=== PATIENT | male | born 1970 | race Caucasian/White ===

== ENCOUNTER 2021-10-18 18:19 | Inpatient (IN) | payer OTHER, SELFPAY ==
[2021-10-18] VITALS (13 sets, daily range): BP systolic 108–176; BP diastolic 71–103; PULSE 67–102; RESP 15–23; TEMP 36.1–37; O2SAT 95–100; BMI 34.4; BMI 31.2; BMI 31.3
--- NOTE | 2021-10-18 18:40 | EKG12_ITS ---
Test Reason : CP Blood Pressure : / mmHG Vent. Rate : 086 BPM Atrial Rate : 086 BPM P-R Int : 134 ms QRS Dur : 088 ms QT Int : 356 ms P-R-T Axes : 075 -12 019 degrees QTc Int : 426 ms Normal sinus rhythm Inferior infarct , age undetermined Abnormal ECG Confirmed by FRANKLIN LOYOLA, GUZMAN ([id number]), medical editor MELVIN KARIMI ([id number]) on 10/21/2021 10:44:40 A M Referred By: Jamie Mcknight Confirmed By:BRYANNA MCKNIGHT MD
[2021-10-18] MEDS: Aspirin 81 MG TAB.CHEW 324 MG PO (18:44)
--- NOTE | 2021-10-18 18:46 | EDS_ITS ---
HPI History of Present Illness Chief Complaint: Chest Pain Informant: patient Onset/Context/Timing Onset: Days (3) Activity at onset: gradual and onset Timing: Intermittent and Lasts (minutes-hrs) Quality: Positive for Burning and Heaviness Location: Substernal (Radiating down left arm and sometimes more in both shoulders and throat) Current Severity: Moderate Maximum Severity: Severe Worsened By: Exertion (Even light); Not Worsened By Breathing Relieved By: Rest Associated Symptoms: Positive for Diaphoresis and Dyspnea; Negative for Nausea, Vomiting, Cough, Fever, Lightheadedness and Palpitations Narrative Narrative: Patient states he is having pain similar to when he had been diagnosed with a heart attack 12 or so years ago. He states he was seen here and sent to a hospital in [place] where he had a heart cath, he did not have a stent. He states since he was discharged from there, he has not seen a doctor, not changed his smoking or his bad eating habits, and started having this discomfort even with light activity the day before yesterday. It was going down his left arm yesterday when he was having nonpleuritic chest heaviness/burning, today it is in both shoulders and feels like he has a knot in his throat. [facility] Medical History Past heart attack Allergy/AdvReac Type Severity Reaction Status Date / Time No Known Allergies Allergy Verified 10/18/21 18:21 Social History Smoking Status: Current every day smoker tobacco type: cigarettes ROS ROS ED Constitutional Constitutional ED: Reports malaise; Denies chills or fever(s) Eyes Eyes: Denies change in vision or diplopia ENT ENT ED: Denies rhinorrhea or sore throat Cardiovascular Cardiovascular: Reports as per HPI, chest pain, diaphoresis and dyspnea; Denies orthopnea, palpitations or pedal edema Respiratory/Chest Respiratory/Chest: Reports dyspnea; Denies cough or orthopnea Gastrointestinal Gastrointestinal: Denies abdominal pain, diarrhea, nausea or vomiting Genitourinary Genitourinary ED: Denies dysuria or hematuria Musculoskeletal Musculoskeletal: Reports as per HPI and extremity pain; Denies back pain or neck pain Integumentary Denies abscess or rash Neurologic Neurologic: Denies headache(s), paresthesias or weakness Psychiatric Psychiatric: Denies anxiety or suicidal thoughts EXAM Physical Exam Const Vital Signs: 10/18/21 18:19 10/18/21 18:35 Temperature 97 F L Temperature Source Temporal Pulse Rate 102 H 91 Respiratory Rate 18 16 Respiratory Effort Short of Breath Blood Pressure 145/95 H 176/99 H Blood Pressure Mean 111 124 Pulse Ox 97 97 Oxygen Delivery Method Room Air Room Air Positive well nourished and well developed General Appearance ED: well developed and NAD HEENT Reports moist mucous membranes normocephalic and atraumatic Eyes PERRL and EOMs intact bilaterally Neck full ROM, supple and no JVD Resp normal respiratory effort and clear to auscultation bilaterally Cardio regular rate, regular rhythm and no murmurs GI non-tender and non-distended Auscultation: normoactive bowel sounds Palpation: soft Back/Spine no CVA tenderness General Back: other FROM Extremity normal to inspection General Extremety ED: Negative for edema, pulses abnormal or tenderness General Extremity: Negative for edema or pulses abnormal Neuro oriented x3, CN's II-XII intact bilaterally and no sensory deficits noted Sensorium / Orientation: awake and alert Motor Exam: strength 5/5 throughout Skin no rashes or lesions noted and no wounds Heart Score History: Highly Suspicious ECG: Significant ST-Depression Age: >45 - <65 years Risk Factors: >/= 3 Risk Factors or History of CAD Score: 7 MDM MDM MDM Narrative Medical decision making narrative: EKG was handed to me from the patient obtaining it while in triage. It looks like an inferior STEMI, so I saw the patient out in the room that they took him to immediately, and in discussing with him it does sound like he is having a STEMI but it started 2 or 3 days ago and he was having intermittent symptoms. I discussed with the STEMI financial services internship very quickly, he agreed with calling STEMI which we did, with Brilinta, heparin, prophylactic Zofran, and aspirin being given in the emergency department. Radiography Chest X-Ray - ED: 1 View, Read by ED Physician and No Acute Disease Rhythm Strip Rhythm Strip: Sinus Rhythm Rate: 85 Ectopy: None EKG Initial EKG: Attestation: I personally reviewed and interpreted this EKG as follows: Interpretation: Sinus Rhythm, S-T Elevation (Inferior 1-2 mm) and S-T Depression (aVL less than 1 mm) Prior EKG tracings: available for review (2010) Prior: Changed Critical Care Time Critical Care Time: Yes Critical care time (excluding procedures): 30-74 minutes (35 min), Including time spent:, Discussing w/Patient &/or Family/Change Person, Discussing w/Consultants, Arranging Admission or Transfer and Performing Direct Patient Care at Bedside Discharge Plan Dx/Rx/DC Orders Clinical Impression: Acute ST elevation myocardial infarction (STEMI) of inferior wall Disposition Disposition: Acute Care Hospital [facility]
--- NOTE | 2021-10-18 18:50 | RAD_ITS ---
STUDY: AP PORTABLE UPRIGHT CHEST X-RAY OF 1858 HOURS ON 10/18/2021 REASON FOR EXAM: 51-year-old male with chest pain. TECHNIQUE: A single view AP portable upright chest x-ray was performed per protocol. COMPARISON: None. FINDINGS: Normal osseous structures. No cardiomegaly. No pulmonary infiltrates, atelectasis, effusion, or pulmonary mass lesions. No pneumonia, pneumonitis or bronchitis. No free subdiaphragmatic air. No splenic flexure syndrome. RAD/Chest 1 View (Portable) IMPRESSION: No active cardiopulmonary disease. Electronically Signed: Tanner Sims MD at 19:14 EDT ,
[2021-10-18] MEDS: Ondansetron 4 MG/2 ML Vial IV (18:53)
[2021-10-18] MEDS: TICAGRELOR 90 MG TABLET 180 MG PO (18:53)
--- NOTE | 2021-10-18 18:57 | HP.PCM.HOS_ITS ---
HPI - General General Date of Admission: 10/18/21 Date of Service: 10/18/21 Chief Complaint: Chest pain, dyspnea. HPI Narrative The patient is a 51 y/o M w/ PMHx: HTN, HLD, CAD with prior OR w/ transfer at that time for consideration PCI; however, from discussions this was deferred in preference for medical management, Heavy Tobacco use, Obesity who presents to the [facility] ED on 10/18/21 with history of nearly 1 year of intermittent chest d iscomfort primarily midsternal with occasional associated shortness of breath and radiation of discomfort to the left shoulder sometimes lasting several minutes to less than 1 hour however they become more frequent and more severe with on Sunday pain rated 10 out of 10, burning, pressure-like with significant dyspnea which eventually resolved however patient had recurrent episode on day of ED presentation prompting ED evaluation. He noted this current presentation pain was rated 5 out of 10 in severity with similar presentation midsternal, pressure and burning with radiation to the left shoulder with associated severe dyspnea, less severe and has resolved prior to ED presentation. Of note patient has not been any hypertensive regimen, hyperlipidemic regimen or aspirin therapy despite the fact it was recommended and he has had prior evidence of coronary disease with OR potentially up to 10 years per his report. Work-up in the ED included T 97, heart rate initially 102, BP 145/95, respiratory rate 18, 97% on room air, CBC with WBC 9.4, hemoglobin 14.9, platelet 234 without marked shift, pending coags, pending BMP, pending troponin, pending chest x-ray, EKG with evidence of inferior STEMI. STEMI call placed and patient was administered aspirin full-strength therapy, heparin bolus as well as Brilinta load per cardiology direction. [facility] Medical History CAD (coronary artery disease) History of OR (myocardial infarction) HLD (hyperlipidemia) HTN (hypertension) Obesity Tobacco use Allergy/AdvReac Type Severity Reaction Status Date / Time No Known Allergies Allergy Verified 10/18/21 18:21 Family History (Updated 10/18/21 @ 19:[address] Anahi Hernandez MD) Mother Heart disease Myocardial infarction Father Heart disease Surgical History (Updated 10/18/21 @ 19:[address] Anahi Hernandez MD) No history of previous surgery Social History (Updated 10/18/21 @ 19:[address] Anahi Hernandez MD) household members: none Smoking Status: Current every day smoker tobacco type: cigarettes Smoking packs per day: 3.5 Smoking cigarettes per day: 70.0 Years smoked: 39 Smoking pack- years: 136.50 alcohol intake: never substance use type: marijuana and other details: Uses medical cannabis, smokes frequently. ROS ROS Narrative Admission Review of Systems: CONSTITUTIONAL: No weight loss, fever, chills, + weakness or fatigue. HEENT: Eyes: No visual loss, blurred vision, double vision or yellow sclerae. Ears, Nose, Throat: No hearing loss, sneezing, congestion, runny nose or sore throat. SKIN: No rash or itching, lesions, wounds. CARDIOVASCULAR: + Chest pain/burning/pressure, No palpitations, edema, orthopnea, syncopal events. RESPIRATORY: + Shortness of breath, occasional cough, occasional wheezing, No marked sputum, hemoptysis. GASTROINTESTINAL: No anorexia, nausea, vomiting or diarrhea, abdominal pain, melena, BRBPR. GENITOURINARY: No dysuria, frequency, urgency or retention. NEUROLOGICAL: No headache, dizziness, syncope, paralysis, ataxia, numbness or tingling in the extremities, focal weakness, change in bowel or bladder control, seizure. MUSCULOSKELETAL: + muscle, back pain, joint pain or stiffness. HEMATOLOGIC: No anemia, bleeding or bruising. LYMPHATICS: No enlarged nodes. No history of splenectomy. PSYCHIATRIC: No history of depression or anxiety. ENDOCRINOLOGIC: + reports of sweating. No cold or heat intolerance. No polyuria or polydipsia. ALLERGIES: No history of asthma, hives, eczema or rhinitis. Vital Signs Vital Signs Vital Signs: 10/18/21 18:19 10/18/21 18:35 10/18/21 18:47 Temperature 97 F L Temperature Source Temporal Pulse Rate 102 H 91 Respiratory Rate 18 16 19 H Respiratory Effort Short of Breath Blood Pressure 145/95 H 176/99 H 148/103 H Blood Pressure Mean 111 124 Pulse Ox 97 97 Oxygen Delivery Method Room Air Room Air Weight Weight: 220 lb Body Mass Index (BMI) 34.4 Physical Exam Narrative Physical Examination: General: Awake, alert, oriented x 3 and cooperative, seated upright in the ED be d, notes chest discomfort has now resolved. Skin: Normal color, normal turgor, no icterus, no cyanosis. HEENT: AT/NC, EOMI, PERRLA, mildly dry MM, no carotid bruits or JVD noted. Lungs: Diminished, greater bases, moderate effort, no rales, ronchi or wheezing. Heart: Mildly tachycardic with regular rhythm; no gallop, rub audible. Abdomen: Soft, obese, NTTP, ND, normal BS, no HSM. Extremities: No cyanosis, clubbing, or edema. Neurological: Patient awake, alert, oriented as noted, cognitive function intact; pupils equally reactive to light and accommodation, cranial nerves II- XII grossly normal, moving all 4 extremities, no focal deficits, strength mildly to moderately global decrease given acute presentation, improving Psychiatric: Affect appears fatigued, no acute evidence of depressive or anxiety feelings. Results Lab / Micro Data Result Diagrams: 10/18/21 18:40 10/18/21 18:40 Rhythm Strip Rhythm Strip: Sinus Rhythm Rate: 85 Ectopy: None Assessment & Plan Assessment/Plan (1) Acute ST elevation myocardial infarction (STEMI) of inferior wall: PLAN: The patient is a 51 y/o M w/ PMHx: HTN, HLD, CAD with prior OR w/ transfer at that time for consideration PCI; however, from discussions this was deferred in preference for medical management, Heavy Tobacco use, Obesity who presents to the [facility] ED on 10/18/21 with history of nearly 1 year of intermittent chest discomfort primarily midsternal with occasional associated shortness of breath and radiation of discomfort to the left shoulder sometimes lasting several minutes to less than 1 hour with more frequent events and more severe nature prompting ED evaluation. #1. Chest Pain w/ Acute STEMI: EKG in ED w/ evidence of inferior STEMI, CXR pending upon evaluation as well as troponin, CBC not marked appearing, BMP p ending additionally. Patient administered full-strength aspirin, Brilinta load and heparin bolus. Patient will be transition to the cardiac catheterization lab once lab is ready and following this to the ICU expectantly, will maintain on a monitored bed, continue serial cardiac enzymes and EKGs. Obtain magnesium level upon admission. Continue medical management w/ asa, add high-dose statin w/ AM FLP. Will defer choice of beta-srinivas and BILLIE inhibitor versus ARB to cardiology. Echocardiogram requested. Cardiology consultation continued. As needed morphine. NG deferred given inferior STEMI presentation. #2. Hypertension: We will defer beta-srinivas type as well as BILLIE inhibitor versus ARB to cardiology, PRN hydralazine in the interim. #3. Hyperlipidemia: We will start high-dose statin, FLP in a.m. #4. Heavy Tobacco Abuse: Encouraged cessation, inpatient consultation per RT, N R if desired. Given significant history patient would benefit from further outpatient evaluation as he notes suspicion for possible COPD. #5. Obesity: Weight loss and lifestyle changes encouraged. #6. DVT prophylaxis: SCDs, will initiate Lovenox therapy once heparin transitioned off. Charges/Coding Visit Charges Inpatient E&M: 45817 Init Hosp L3
[2021-10-18] MEDS: 0.9% Normal Saline 1,000 ML 999 ML IV (19:00)
[2021-10-18] MEDS: Heparin Injection (Vial) 5,000 UNIT/ML VIAL 4000 UNIT IV (19:00)
[2021-10-18 19:03] LABS: Absolute Lymphocyte Count 2.38 X10^3/uL (0.83-4.51); Absolute Neutrophil Count 5.9 X10^3/uL (2.0-7.7); Basophil# 0.03 X10^3/uL; Basophil% 0.3 % (0-1); Eosinophil# 0.21 X10^3/uL; Eosinophils% 2.2 % (0-5); Hematocrit 43.4 % (40-54); Hemoglobin 14.9 g/dL (13.0-16.5); Lymphocyte # 2.38 X10^3/ul (0.83-4.51); Lymphocyte % 25.5 % (19-41); Mean Corp Hgb Conc 34.3 g/dL (32-36); Mean Corpuscular Hgb 30.3 pg (27.0-32.0); Mean Corpuscular Volume 88.4 fL (80-94); Mean Platelet Vol. 9.1 fl (6.2-12.0); Monocyte# 0.73 X10^3/uL; Monocyte% 7.8 % (0-10); NRBC Flagged by Analyzer 0 % (0-5); Neutrophil # 5.94 X10^3/uL (2.7-7.7); Neutrophil % 63.6 % (47-70); Platelet Count 234 K/mm3 (150-450); RBC Distribution Width CV 12.7 % (11.6-14.6); RBC Distribution Width SD 41.1 fl (35.1-43.9); Red Blood Count 4.91 M/mm3 (4.6-6.2); White Blood Count 9.4 K/mm3 (4.4-11.0)
[2021-10-18] MEDS: HEPARIN/D5w 25,000 UNITS 25,000 UNITS/250 ML IV.SOLN. 12 UNITS CONT INF (19:12)
[2021-10-18 19:14] LABS: International Normalized Ratio 1.1; Partial Thromboplast Time 28.8 Seconds (24.1-36.2); Prothrombin Time (Protime)PT. 13.6 SECONDS (11.7-14.9)
--- NOTE | 2021-10-18 19:25 | CM.ED ---
Social Work Note SW provided emotional support to pt's family. Ashley Cordova MANAGER ANIMATION, TUBING MACHINE TENDER
[2021-10-18 20:16] LABS: Anion Gap 8 (5-15); BUN 15 mg/dL (7-18); BUN/Creat Ratio 16.5 RATIO (10-20); Calcium,Total 9.2 mg/dL (8.5-10.1); Chloride 104 mmol/L (98-107); Creatinine, Serum 0.91 mg/dL (0.70-1.30); EST Glomerular Filtration Rate 93 mL/min (>60); Est Glom Filt Rate - Afr Amer 113 mL/min (>60); Estimated Creatinine Clearance 89.79 ml/min; Glucose 191 mg/dL (74-106); Potassium 3.5 mmol/L (3.5-5.1); Sodium Level 136 mmol/L (136-145); Troponin-I HS 1843 pg/mL (3.0-78.0)
--- NOTE | 2021-10-18 20:34 | CON.PCM.CA_ITS ---
Assessment & Plan Assessment/Plan (1) Acute ST elevation myocardial infarction (STEMI) of inferior wall: PLAN: This appears to be late presentation of acute NE with symptoms starting greater than 24 hours prior to presentation. Patient had a 95 to 99% stenosis in the mid RCA that was treated with bare-metal stents. We will keep him on aspirin, Brilinta, beta-srinivas, statin. We will check a 2D echo tomorrow. Patient will be admitted to the CCU for further management of his ST elevation NE. HPI Consult Data Date of Consult: 10/18/21 HPI Narrative HPI Narrative: SOLANGE MOURA, is a 51 M who presents with chest pain and left shoulder pain that started 2 days back. It became more intense today and patient came to the emergency room. In the emergency room EKG was suggestive of late presentation of acute inferior NE. Since patient was still having symptoms a STEMI alert was called. Patient was brought emergently to the cardiac [facility] [facility] and underwent coronary angiography which revealed 95-99% stenosis in the mid RCA that was treated with bare-metal stents. Patient appears to have had issues with compliance with medical therapy, follow-up, smoking cessation etc. Review of systems: All systems reviewed. All systems negative except that in HPI PFSH Medical History CAD (coronary artery disease) History of NE (myocardial infarction) HLD (hyperlipidemia) HTN (hypertension) Obesity Tobacco use Allergy/AdvReac Type Severity Reaction Status Date / Time No Known Allergies Allergy Verified 10/18/21 18:21 Family History (Updated 10/18/21 @ 19:[address] Anahi Hernandez MD) Mother Heart disease Myocardial infarction Father Heart disease Surgical History (Updated 10/18/21 @ 19:[address] Anahi Hernandez MD) No history of previous surgery Social History (Updated 10/18/21 @ 19:[address] Anahi Hernandez MD) household members: none Smoking Status: Current every day smoker tobacco type: cigarettes Smoking packs per day: 3.5 Smoking cigarettes per day: 70.0 Years smoked: 39 Smoking pack- years: 136.50 alcohol intake: never substance use type: marijuana and other details: Uses medical cannabis, smokes frequently. Physical Exam Const alert and oriented x3 Orientation / Consciousness: awake HEENT normocephalic Eyes no scleral icterus Resp normal respiratory effort Cardio regular rate and regular rhythm Skin no rashes or lesions noted Neuro oriented x3 Psych mental status grossly normal Risk Stratification Risk Stratification Applicable: No Charges/Coding Visit Charges Inpatient E&M: 82503 Init Hosp L2 Objective Data Vital Signs: Vital Signs Temp Pulse Resp BP Pulse Ox 98.6 F 102 H 16 139/90 H 96 10/18/21 19:24 10/18/21 19:24 10/18/21 19:24 10/18/21 19:24 10/18/21 19:24 Oxygen Flow Rate (L/min) 4 Oxygen Delivery Method Room Air Weight: 199 lb 8.293 oz Body Mass Index (BMI) 31.2 Lab / Micro Data Result Diagrams: 10/18/21 18:40 10/18/21 18:40 Labs: Laboratory Results - last 24 hr 10/18/21 18:40: WBC 9.4, RBC 4.91, Hgb 14.9, Hct 43.4, MCV 88.4, MCH 30.3, MCHC 34.3, RDW Std Deviation 41.1, RDW Coeff of Jeromy 12.7, Plt Count 234, MPV 9.1, Immature Gran % (Auto) 0.600, Neut % (Auto) 63.6, Lymph % (Auto) 25.5, Denali % (Auto) 7.8, Eos % (Auto) 2.2, Baso % (Auto) 0.3, Absolute Neuts (auto) 5.9, Absolute Lymphs (auto) 2.38, Nucleated RBC % 0 10/18/21 18:40: PT 13.6, INR 1.1, APTT 28.8 10/18/21 18:40: Sodium 136, Potassium 3.5, Chloride 104, Carbon Dioxide 24.0, A nion Gap 8, BUN 15, Creatinine 0.91, Estim Creat Clear Calc 89.79, Est GFR (MDRD) Af Amer 113, Est GFR (MDRD) Non-Af 93, BUN/Creatinine Ratio 16.5, Glucose 191 H, Calcium 9.2, Troponin I High Sens 1843 H* 10/18/21 18:40: Magnesium 2.0 Rhythm Strip Rhythm Strip: Sinus Rhythm Rate: 85 Ectopy: None Cardiology Labs/Tests 10/18/21 18:40: WBC 9.4, RBC 4.91, Hgb 14.9, Hct 43.4, MCV 88.4, MCH 30.3, MCHC 34.3, Plt Count 234, MPV 9.1, Immature Gran % (Auto) 0.600, Neut % (Auto) 63.6, Lymph % (Auto) 25.5, Denali % (Auto) 7.8, Eos % (Auto) 2.2, Baso % (Auto) 0.3, A bsolute Neuts (auto) 5.9, Nucleated RBC % 0 10/18/21 18:40: PT 13.6, INR 1.1, APTT 28.8 10/18/21 18:40: Sodium 136, Potassium 3.5, Chloride 104, Carbon Dioxide 24.0, Anion Gap 8, BUN 15, Creatinine 0.91, Est GFR (MDRD) Af Amer 113, Est GFR (MDRD) Non-Af 93, BUN/Creatinine Ratio 16.5, Glucose 191 H, Calcium 9.2 10/18/21 18:40: Magnesium 2.0 Rhythm: EKG: ECHO: Stress Test: Cardiac Cath: PCI: CT Surgery: Holter monitor: EPS: PPM: CXR: Chest CT Scan: Radiography Diagnostic Testing: Radiology Impression Chest X-Ray 10/18/21 18:50 IMPRESSION: No active cardiopulmonary disease. Electronically Signed: Tanner Sims MD at 19:14 EDT ,
--- NOTE | 2021-10-18 20:55 | CL.I_ITS ---
Patient Name: SOLANGE MOURA Study Date: 10/18/2021 Performing: Ruben Mcknight MD Ht: 66.92 inches 170 cm : 1970 Wt: 200.62 lbs 91 kg Age: 51 Gender: male BSA: 2.02 PROCEDURE(S) PERFORMED DC02-(85195)C/COR IC07-([id number])AMI, BMS AND/OR PTCA ARTERY OR GRAFT SINGLE VESSEL CLINICAL PROFILE AND CO-MORBIDITIES Indications: ACS > 24 hrs Heart Failure: None Stress/Imaging Stress/Image Study Performed: No CAD Presentations: STEMI. Symptom onset Date/Time: 10/16/21 Time Not Available CONCLUSIONS CAD as described. No significant . Successful PCI of mRCA with bare metal stents RECOMMENDATIONS DESCRIPTION OF PROCEDURE The patient arrived to the procedure lab. The risks and benefits of the procedure as well as a full d escription of our services here and lack of surgical backup were fully explained to the patient and/o r their significant other prior to the catheterization. The Timeout was completed, verifying the rome ect patient and procedure. The patient's procedural site was prepped and draped in the usual fashion. Local anesthetic was given subcutaneously to right radial region with Lidocaine 2%. Using a modified Seldinger technique, arterial access was obtained via the right radial artery, a 6Fr sheath was inse rted.. Right Coronary Artery selective angiography was then performed in multiple views using a 5 Fr . JR 4 catheter. Left Coronary Artery selective angiography was performed in multiple views using a 5 Fr. JL3.5 catheter. LV to AO pullback pressures were then recordedThe images were reviewed and optio ns discussed. A decision was then made to proceed with an Intervention, IVUS or other adjunct procedure. JR4 Guide catheter was inserted and engaged into the RCA. [employer] Olanta Guide wire was advanced t o the RCA. Emerge 3.0 x 12 Balloon catheter was inserted. Balloon catheter was advanced across lesion in the right coronary, mid. PTCA balloon inflated at 6 atms for 10 secs. Angiogram performed post ba lloon dilatation. Rebel 3.50 x 16 Bare Metal stent was inserted Bare Metal stent was advanced across the lesion in the right coronary, mid. Angiogram performed pre stent deployment. Angiogram performed post stent deployment. NC Emerge 4.0 x 8 Balloon catheter was inserted. Balloon catheter was advanced across lesion in the right coronary, mid. Angiogram performed post balloon dilatation. Rebel 3.5 x 8 Bare Metal stent was inserted Bare Metal stent was advanced across the lesion in the right coronary, mid. Angiogram performed post stent deployment. The arterial sheath was pulled and a TR Band was a pplied for hemostasis CORONARY ANGIOGRAPHY DOMINANCE: Right Dominant LEFT HEART ASSESSMENT Left Ventricular Ejection Fraction: Not assessed LEFT MAIN: Mild luminal irregularities LEFT ANTERIOR DESCENDING ARTERY: Mild luminal irregularities CIRCUMFLEX ARTERY: Mild luminal irregularities RIGHT CORONARY ARTERY: MID RCA: 95-99 % Stenosis VALVE FINDINGS: No Aortic Valve Stenosis INTERVENTION INFORMATION LESION SITE: RCA (Mid) Lesion Complexity: High/C, chronic total occlusion: No, lesion at bifurcation: Yes, thrombus present: Yes, lesion length: 20 mm, culprit lesion: Yes, Previously treated lesion: No Pre Stenosis: 95-99 % Pre intervention VICTORIA flow: 2 PROCEDURE: Bare Metal Stent with pre and post dilatation. Post Stenosis: 0 % Post intervention VICTORIA flow: 3 Lesion Devices: Cardinal 6 Fr JR4 100cm Guide Catheter Churchill .014 [employer] Olanta Straight 190cm [place] [facility] EMERGE MR 3.00x12 BALLOON [place] [facility] Rebel MR BMS 3.50x16 [place] [employer] NC EMERGE MR 4.00x08 BALLOON [place] [employer] Rebel MR BMS 3.50x08 COMPLICATIONS No Complications PROCEDURE MEDICATIONS Fentanyl 50 mcg IV Oxygen: 2 L/min via nasal cannula Heparin given IA 10/18/2021 19:47:32 Heparin 25,000u / 250ml D5W @ 12 u/hr discontinued 10/18/2021 19:56:18 Nitro 100 mcg IC 10/18/2021 20:13:26 Verapamil 2.5mg, Ntg 100mcgs, 3000 units of Heparin given IA 10/18/2021 19:47:32 IV Bolus: .9 NaCl 700ml total 10/18/2021 20:00:11 SUMMARY OF HEMODYNAMIC DATA Time AIR REST ECG 19:25:41 AO 134/91 (111) SA 19:44:54 LV 136/5, 20 19:51:31 LV 145/5, 16 19:51:37 20:47:12 Signed By Ruben Mcknight MD On 10/18/2021 20:54:47 Ruben Mcknight MD
--- NOTE | 2021-10-18 21:15 | EKG12_ITS ---
Test Reason : AM EKG Blood Pressure : / mmHG Vent. Rate : 075 BPM Atrial Rate : 075 BPM P-R Int : 138 ms QRS Dur : 082 ms QT Int : 398 ms P-R-T Axes : 050 -39 -36 degrees QTc Int : 444 ms Normal sinus rhythm Left axis deviation T-wave abnormality: consider inferior ischemia Inferior infarct , age undetermined , cannot be excluded Abnormal ECG Confirmed by JULISSA LOYOLA, ISABEL ([id number]), commissioning editor MELVIN KARIMI ([id number]) on 10/20/2021 12:46:02 PM Referred By: Jamie Mcknight Confirmed By:ISABEL COSTA MD
[2021-10-18] MEDS: 0.9% Normal Saline 1,000 ML 75 ML IV (21:46)
[2021-10-18] MEDS: Atorvastatin Calcium 80 MG Tablet PO (21:46)
[2021-10-18] MEDS: Carvedilol 3.125 MG TABLET PO (21:46)
--- NOTE | 2021-10-18 22:23 | NURSING ---
Upon arrival from senior label specialist at 2049, Integrillin 75 mg/100 mL was running at 2 mcg/kg/min. New bag scanned and started after pharmacy sent it up.
[2021-10-18 23:20] LABS: Troponin-I HS 2720 pg/mL (3.0-78.0)
[2021-10-19] VITALS: BP 123/76; PULSE 78; RESP 19; TEMP 36.8; O2SAT 97
--- NOTE | 2021-10-19 00:35 | NURSING ---
While this RN administers PRN Tylenol and melatonin as per orders and pt request, pt states to this RN that I have to get out of here by noon, no later. Pt proceeded to tell staff I'm not asking. I'll take my stuff and go at noon. I can't afford to stay here. 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 I'll lose my only income. Pt refused to listen to education on post-PCI care.
[2021-10-19] MEDS: Acetaminophen 325 MG Tablet 650 MG PO (00:36)
[2021-10-19] MEDS: MELATONIN 3 MG TABLET PO (00:37)
[2021-10-19 01:00] VITALS: BP 109/63; PULSE 75; RESP 12; O2SAT 98
[2021-10-19 01:34] LABS: Troponin-I HS 4744 pg/mL (3.0-78.0)
[2021-10-19 02:00] VITALS: BP 109/71; PULSE 66; RESP 16; O2SAT 94
[2021-10-19 03:00] VITALS: BP 118/78; PULSE 71; PULSE 84; RESP 15; O2SAT 97
--- NOTE | 2021-10-19 04:17 | NURSING ---
em physician went into pt's room to attend to beeping IV. Pt said that he wanted to leave because he was tired of being here. This RN went into room and explained the risks of leaving now. Pt insisted on leaving because he was having a panic attack and had to get out of the hospital now. Pt signed AMA form, hospitalist aware of pt leaving. Pt educated on the risk of bleeding due to arterial access and blood thinners given during and after heart cath. Pt instructed to leave dressing on for at least 24 hours and responded, Oh, I'll leave that on until I follow up with the doctor. I'll call them this morning. IVs removed, R radial dressing reinforced. Pt put on clothes and left at 0415.
--- NOTE | 2021-10-19 05:55 | EKG12_ITS ---
Test Reason : POST PCI Blood Pressure : / mmHG Vent. Rate : 073 BPM Atrial Rate : 073 BPM P-R Int : 146 ms QRS Dur : 080 ms QT Int : 402 ms P-R-T Axes : 056 -35 -45 degrees QTc Int : 442 ms Normal sinus rhythm Left axis deviation T wave abnormality, consider inferior ischemia Inferior GA, age undetermined, cannot be excluded Abnormal ECG Confirmed by JULISSA LOYOLA, ISABEL ([id number]), story editor MELVIN KARIMI ([id number]) on 10/20/2021 12:46:36 PM Referred By: Jamie Mcknight Confirmed By:ISABEL COSTA MD
--- NOTE | 2021-10-19 15:04 | CRPHASE1 ---
Patient Communication PHII Cardiac Rehab Discussed with Patient:: No - patient left the ICU against medical advise before CR staff could visit. Guide to Cardiac Rehab Given to Patient:: No Cardiac Rehab Facility Choice List Given to Patient:: No Cardiac Rehabilitation Info Cardiac Rehabilitation Program Information: Cardiac Rehabilitation is important for patients like you who are recovering from a heart problem. Cardiac rehabilitation programs are recognized as integral to the continued care of the patient with coronary heart disease. The cardiac rehabilitation program is designed to optimize a patient's physical, psychological, and social functioning. Health director of primary care work in cardiac rehabilitation programs and assist you with getting the treatments you need to get stronger and healthier - like exercise, healthy eating habits, and medications. Cardiac rehabilitation has been show to help people with heart problems live longer and have better life enjoyment than people who do not go to cardiac rehabilitation. Please contact the Cardiac Rehabilitation Program at [facility] at in two weeks if you have not heard from them.
--- NOTE | 2021-10-19 15:05 | CRPH1.INSTRU ---
General Education CAD and cardiac anatomy and function:: Not instructed Explanation of diagnoses and procedures:: Not instructed Sign/Symptoms of NV:: Not instructed Antiplatelet therapy: Not instructed Proper use of NTG-SL: Not instructed Emergency procedures and activation of EMS: Not instructed Compliance of all prescribed medications: Not instructed - Patient left ICU against medical advice before CR could do education.
== END 2021-10-19 04:15 | disposition left against medical advice (07) | DRG 249 ==
LOC: ED 19:15 → ICU 19:42
PROVIDERS: Admitting Provider Family Medicine; Emergency Provider Emergency Medicine; Referring Provider Specialist; Visit Provider Family Medicine
DX: I21.11 ST elevation (STEMI) myocardial infarction involving right coronary artery (principal); E66.9 Obesity, unspecified; J44.9 Chronic obstructive pulmonary disease, unspecified; E78.5 Hyperlipidemia, unspecified; F17.210 Nicotine dependence, cigarettes, uncomplicated; I10 Essential (primary) hypertension; I25.10 Atherosclerotic heart disease of native coronary artery without angina pectoris; I25.2 Old myocardial infarction; Z68.34 Body mass index [BMI] 34.0-34.9, adult; Z79.899 Other long term (current) drug therapy; Z53.29 Procedure and treatment not carried out because of patient's decision for other reasons; Z82.49 Family history of ischemic heart disease and other diseases of the circulatory system
CPT/HCPCS: 71045; 80048; 83735; 84484; 85025; 85610; 85730; 92941; 93005; 93454; 99152; 99153; 99284; J7030; Q9967; A4216; C1725; C1769; C1876; C1887; C1894; J1327; J2405

== ENCOUNTER → 2021-11-21 | Outpatient (CLI) | payer SELFPAY ==
--- NOTE | 2021-11-21 11:14 | ECHOD_ITS ---
Reason For Study: s/p WI Procedure This was a 2D Doppler, Color Flow transthoracic echocardiogram. The exam was of adequate technical quality. Exam performed in department. Left Ventricle Normal LV size. Left ventricular systolic function is normal. The estimated ejection fraction is 65 %. No evidence for diastolic dysfunction. No regional wall motion abnormalities noted. Right Ventricle Normal RV size. Normal systolic function. Atria Normal left atrium. Normal right atrium. No doppler evidence for ASD. Mitral Valve There is no mitral annular calcification. Normal mitral valve. Trivial mitral valve insufficiency. Tricuspid Valve Normal tricuspid valve. Trivial tricuspid valve insufficiency. Unable to estimate RV systolic pressure due to insufficient tricuspid regurgitant envelope. Aortic Valve Trisinus/trileaflet aortic valve. Normal aortic valve. Pulmonic Valve The pulmonic valve is not well visualized. Great Vessels Normal sized aortic root. Pericardium/Pleural No pericardial effusion. MMode/2D Measurements & Calculations LVIDd: 4.9 cm IVSd: 1.0 cm Ao root diam: 3.4 cm LVIDs: 3.4 cm LVPWd: 1.1 cm LA dimension: 3.7 cm RVDd: 3.3 cm FS: 30.5 % LAV(MOD-bp): 47.6 ml LA A4 area: 16.5 cm2 RA A4 area: 14.9 cm2 LAV(MOD-bp) Indexed: 23.2 ml/m2 LAV(MOD-sp2): 56.4 ml LAV(MOD-sp4): 40.5 ml Time Measurements MV dec time: 0.24 sec Doppler Measurements & Calculations MV E max hernan: 86.1 cm/sec Lat Peak E' Hernan: 13.2 cm/sec Med Peak E' Hernan: 7.0 cm/sec MV A max hernan: 78.1 cm/sec E/E' lat: 6.5 E/E' med: 12.3 MV E/A: 1.1 MV V2 max: 91.3 cm/sec MV P1/2t max hernan: 92.5 cm/sec Ao V2 max: 123.6 cm/sec MV max P.3 mmHg MV P1/2t: 112.8 msec Ao max P.1 mmHg MV V2 mean: 50.9 cm/sec MV dec slope: 240.1 cm/sec2 MV mean P.2 mmHg MVA(P1/2t): 2.0 cm2 MV V2 VTI: 32.0 cm LV V1 max: 104.2 cm/sec PA V2 max: 74.2 cm/sec LV V1 max P.3 mmHg ECHO/Echo Complete Interpretation Summary Left ventricular systolic function is normal. The estimated ejection fraction is 65 %. Trivial mitral valve insufficiency. Trivial tricuspid valve insufficiency. Unable to estimate RV systolic pressure due to insufficient tricuspid regurgita nt envelope. No evidence for diastolic dysfunction. Ordering Physician: Gina Ko Referring Physician: No PCP Noted Performed By: Fercho Rogers RCS
== END | disposition home or self-care (01) ==
LOC: CVS 11:12
PROVIDERS: Referring Provider Nurse Practitioner Gerontology; Visit Provider Nurse Practitioner Gerontology
DX: I25.10 Atherosclerotic heart disease of native coronary artery without angina pectoris (principal); I25.2 Old myocardial infarction; Z95.5 Presence of coronary angioplasty implant and graft
CPT/HCPCS: 93306

== ENCOUNTER 2024-01-17 14:52 | Emergency (ER) | payer SELFPAY ==
[2024-01-17 14:53] VITALS: BP 126/79; PULSE 102; RESP 20; TEMP 36.4; O2SAT 97; BMI 31.1
--- NOTE | 2024-01-17 15:21 | EDS_ITS ---
HPI HPI - URI History of Present Illness Chief Complaint: Shortness of Breath Detail of Chief Complaint: URI symptoms for the last 3 days. Informant: patient Onset/Context/Timing Onset: Days Context: Gradual Onset Timing: Continuous Current Severity: Mild Maximum Severity: Mild Associated Symptoms Associated Symptoms: Positive for Nasal Congestion, Headache, Myalgias and Nonproductive cough Narrative Narrative: 53-year-old male past medical history of hypertension and CAD with stents. Mom diagnosed with COVID recently. 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 He has had URI symptoms with a headache last 3 days. Denies vomiting or diarrhea. Prior similar symptoms: Yes Recent Illness/Hospitalization: No ROS ROS ED ROS Narrative URI with cough. Constitutional Constitutional ED: Reports fever(s) and subjective Eyes Eyes: Denies blurry vision ENT ENT ED: Reports rhinorrhea; Denies ear pain Cardiovascular Cardiovascular: Denies chest pain Respiratory/Chest Respiratory/Chest: Reports cough Gastrointestinal Gastrointestinal: Denies abdominal pain Genitourinary Genitourinary ED: Denies dysuria or hematuria Musculoskeletal Musculoskeletal: Denies arthralgias Integumentary Denies abscess Neurologic Neurologic: Denies headache(s) Psychiatric Psychiatric: Denies anxiety Endocrine Endocrinology: Denies cold intolerance Hematologic/Lymphatic Hematologic/Lymphatic: Denies easy bleeding, easy bruising or lymphadenopathy Allergic/Immunologic Allergic/Immunologic ED: Denies mouth swelling, tongue swelling or urticaria PFSH PFS Medical History Atherosclerosis of coronary artery of [place] heart without angina pectoris CAD (coronary artery disease) Obesity Tobacco use HLD (hyperlipidemia) HTN (hypertension) History of SC (myocardial infarction) Home Medications ?Medication ?Instructions ?Recorded ?Last Taken ?Type aspirin 81 mg tablet,delayed 81 mg PO DAILY #30 tabs 10/24/21 Unknown Rx release (Adult Aspirin Regimen) atorvastatin 40 mg tablet 40 mg PO QHS #30 tabs 10/24/21 Unknown Rx clopidogrel 75 mg tablet (Plavix) 75 mg PO DAILY 11/10/21 Unknown History metoprolol succinate 25 mg 50 mg (2 x 25 mg) PO DAILY #30 tabs 11/10/21 Unknown Rx tablet,extended release 24 hr Allergy/AdvReac Type Severity Reaction Status Date / Time No Known Allergies Allergy Verified 01/17/24 14:53 Family History Mother Heart disease Myocardial infarction Father Heart disease Surgical History History of coronary artery stent placement (10/18/21) No history of previous surgery Social History household members: none Smoking Status: Current every day smoker tobacco type: cigarettes alcohol intake: never substance use type: marijuana and other details: Uses medical cannabis, smokes frequently. EXAM Physical Exam Narrative Exam Narrative: Well-appearing 53-year-old male. Vital signs stable afebrile. Pulse ox 97% on room air no hypoxia. H EENT exam unremarkable. Mytrex membranes. Neck nontender no JVD. Lungs clear to auscultation bilaterally. Dry cough. Heart regular rhythm rate about 100 no murmur. Chest wall ribs nontender. Abdomen soft nontender. Moving all 4 extremities. Nontender no edema. Back nontender. He is awake alert no focal motor deficits. Const Vital Signs: 01/17/24 14:53 01/17/24 15:18 01/17/24 16:35 Temperature 97.6 F L 98.6 F Temperature Source Temporal Pulse Rate 102 H 81 Respiratory Rate 20 H 19 H Respiratory Effort Normal Non-Labored Respiratory Depth Normal Respiratory Pattern Normal Blood Pressure 126/79 H Blood Pressure Mean 94 Pulse Ox 97 96 Oxygen Delivery Method Room Air Room Air Positive well nourished and well developed; Negative for cachectic or contractures General Appearance ED: well developed and NAD; Negative for cachectic, contractures, cyanotic, diaphoretic or pallor Nutritional Appearance: Negative for cachectic HEENT Reports moist mucous membranes; Denies dry mucous membranes normocephalic and atraumatic; Negative for scalp tenderness Mouth ED: No dry mucous membranes Mouth: No dry mucous membranes Throat: posterior oropharynx normal Eyes PERRL and EOMs intact bilaterally General Eye ED: Negative for pale conjunctiva or scleral icterus Neck no lymphadenopathy, supple, no meningeal signs and no JVD General: Negative for anterior neck swelling or lymphadenopathy Resp normal respiratory effort and clear to auscultation bilaterally Effort and Inspection: Negative for retractions or pain with movement Auscultation: Negative for rales, rhonchi, wheezes or diminished lung sounds Cardio S1 normal heart sound, S2 normal heart sound and no murmurs Rate: regular rate Rhythm: regular rhythm GI non-tender, non-distended and no masses Inspection: Negative for abdominal distention Auscultation: normoactive bowel sounds Palpation: soft; Negative for tender or guarding Back/Spine no CVA tenderness and normal ROM General Back: Negative for CVA tenderness Cervical Spine: Negative for cervical spine tenderness Thoracic Spine / Upper Back: Negative for thoracic spinal tenderness Lumbar Spine / Lower Back: Negative for lumbar spinal tenderness Sacrum: Negative for tenderness Extremity normal to inspection and full ROM General Extremety ED: Negative for cyanosis or tenderness General Extremity: Negative for cyanosis Neuro oriented x3 and CN's II-XII intact bilaterally Sensorium / Orientation: alert, oriented to person, oriented to place and oriented to time; Negative for orientation impaired, lethargic or stuporous Motor Exam: strength 5/5 throughout Psych mental status grossly normal Appearance: Negative for other Attitude: No agitated Mood & Affect: Negative for depressed, anxious or tearful Skin General Skin Exam: Negative for jaundice or pallor Lesions: no lesions Rashes: no rashes Trauma: Negative for abrasion or laceration MDM MDM MDM Narrative Medical decision making narrative: 53-year-old male who I suspect he has COVID or another viral URI. 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 Patient wants to be tested I explained him that prior would not change our treatment plan but he wants documentation. Repeat exam patient doing well at 5:04 PM. He will be discharged home. We went over his test results. History & Record Review Discussion w/independent historian: Patient Lab Data Attestation: I reviewed the patient's lab results. Lab results narrative: COVID-positive. Radiography Chest X-Ray - ED: 1 View and Read by ED Physician Diagnostic Testing: Clinical Impression(s) from Imaging Studies Chest X-Ray 01/17/24 15:29 IMPRESSION: Normal x-ray examination of the chest. Electronically Signed: Tj Hendrickson MD at 15:39 EDT , Chest x-ray, portable, single view interpreted both by myself and the radiolo gist shows no acute abnormality. Normal cardiac silhouette. Normal lung limon. Discharge Plan Triage Chief Complaint: Shortness of Breath ED Provider: Rhett Zapien Dx/Rx/DC Orders Clinical Impression: COVID Instructions: Human Coronaviruses Prescriptions: No Action clopidogrel [Plavix] 75 mg tablet 75 mg PO DAILY metoprolol succinate 25 mg tablet extended release 24 hr 50 mg PO DAILY Qty: 30 11RF aspirin [Adult Aspirin Regimen] 81 mg tablet,delayed release (DR/EC) 81 mg PO DAILY Qty: 30 11RF atorvastatin 40 mg tablet 40 mg PO QHS Qty: 30 11RF Primary Care Provider: Care Physician,No Primary Referrals: Vidal Obrien MD [Med Staff - Dermatology Sales Representative] - As Needed Care Physician,No Primary [Primary Care Provider] - Activity Restrictions/Additional Instructions: You are positive for COVID. Your chest x-ray was normal no pneumonia. Plenty of fluids and rest. Tylenol and Motrin for body aches. Follow-up with your doctor as needed. Print Language: Hungarian Disposition Disposition: Home, Self Care
--- NOTE | 2024-01-17 15:29 | RAD_ITS ---
STUDY: X-RAY CHEST REASON FOR EXAM: Male, 53 years old. Cough TECHNIQUE: Single AP portable view of the chest. COMPARISON: Comparison is made with prior study dated October 18, 2021. FINDINGS: The lungs are clear and expanded. There is no demonstrated pleural abnormality. Normal size heart. Normal mediastinum and yanely. Normal visualized pulmonary arteries. Normal visualized aortic arch and descending thoracic aorta. Normal visualized thoracic spine. Normal visualized ribs, clavicles, and shoulders. There is no demonstrated abnormality of the visualized soft tissue structures of the upper abdomen. RAD/Chest 1 View (Portable) IMPRESSION: Normal x-ray examination of the chest. Electronically Signed: Tj Hendrickson MD at 15:39 EDT ,
[2024-01-17 16:35] VITALS: PULSE 81; RESP 19; TEMP 37; O2SAT 96
== END 2024-01-17 17:11 | disposition home or self-care (01) ==
PROVIDERS: Emergency Provider Emergency Medicine; Visit Provider Emergency Medicine
DX: U07.1 COVID-19 (principal); F17.210 Nicotine dependence, cigarettes, uncomplicated; I25.10 Atherosclerotic heart disease of native coronary artery without angina pectoris; F12.90 Cannabis use, unspecified, uncomplicated; I25.2 Old myocardial infarction; Z95.5 Presence of coronary angioplasty implant and graft; Z79.899 Other long term (current) drug therapy
CPT/HCPCS: 71045; 87631; 99282